=== PATIENT | female | born 1980 | race Caucasian/White ===

== ENCOUNTER 2020-03-18 15:19 | Observation (INO) | payer MEDICAID ==
[~2020-03-18] VITALS: Ht 170.2 cm; Wt 91.6 kg
[2020-03-18] MEDS ORDERED: LACTATED RINGERS 1,000 ML IV SCH (16:00)
[2020-03-18 16:04] LABS: CLARITY URINE CLOUDY (CLEAR); COLOR URINE YELLOW (YELLOW); KETONES URINE NEGATIVE (NEGATIVE); LEUKOCYTE ESTERASE URINE 2+ (NEGATIVE); NITRITE URINE NEGATIVE (NEGATIVE); OCCULT BLOOD URINE NEGATIVE (NEGATIVE); PROTEIN URINE NEGATIVE (NEGATIVE); SPECIFIC GRAVITY URINE 1.016 (1.005-1.030)
[2020-03-18] MEDS: TERBUTALINE SULFATE 1MG/ML VIAL SUBCUT PRN ×2 (16:11→16:42)
== END 2020-03-18 17:30 | disposition home or self-care (01) ==
LOC: 8 EST LDRP 15:19
PROVIDERS: ADMIT Obstetrics & Gynecology; ATTEND Obstetrics & Gynecology
DX: O26.893 Other specified pregnancy related conditions, third trimester (principal); R10.9 Unspecified abdominal pain; Z3A.39 39 weeks gestation of pregnancy
CPT/HCPCS: 59025; 81003; 82731; 96360; 96372; G0378; J3105; 99281

== ENCOUNTER 2020-04-15 11:44 | Observation (INO) | payer MEDICAID ==
[2020-04-15 12:53] LABS: CLARITY URINE CLOUDY (CLEAR); COLOR URINE DARK YELLOW (YELLOW); KETONES URINE TRACE (NEGATIVE); LEUKOCYTE ESTERASE URINE 2+ (NEGATIVE); NITRITE URINE NEGATIVE (NEGATIVE); OCCULT BLOOD URINE NEGATIVE (NEGATIVE); PH URINE 5.5 (4.5-8.0); PROTEIN URINE 1+ (NEGATIVE)
== END 2020-04-15 13:10 | disposition home or self-care (01) ==
LOC: 8 EST LDRP 11:44
PROVIDERS: ADMIT Obstetrics & Gynecology; ATTEND Obstetrics & Gynecology
DX: O26.853 Spotting complicating pregnancy, third trimester (principal); Z3A.35 35 weeks gestation of pregnancy
CPT/HCPCS: 59025; 81003; G0378; 99281

== ENCOUNTER 2020-04-24 23:45 | Observation (INO) | payer MEDICAID ==
[~2020-04-24] VITALS: Ht 170.2 cm; Wt 91.6 kg
[2020-04-25] MEDS ORDERED: FERR325T6 PO (01:02)
[2020-04-25] MEDS ORDERED: PREN1TAB78 PO (01:02)
== END 2020-04-25 03:00 | disposition home or self-care (01) ==
LOC: 8 EST LDRP 23:45
PROVIDERS: ADMIT Obstetrics & Gynecology; ATTEND Obstetrics & Gynecology
DX: O62.9 Abnormality of forces of labor, unspecified (principal); Z3A.36 36 weeks gestation of pregnancy
CPT/HCPCS: 59025; 76815; 76818; G0378; 99281

== ENCOUNTER 2020-04-29 11:27 | Observation (INO) | payer MEDICAID ==
[~2020-04-29] VITALS: Ht 170.2 cm; Wt 92.5 kg
[~2020-04-29 11:27] MED LIST: FERR325T6 PO; PREN1TAB78 PO
[2020-04-29] MEDS ORDERED: LACTATED RINGERS 1,000 ML IV SCH (12:45)
[2020-04-29] MEDS ORDERED: PNV11TAB MT (14:55)
== END 2020-04-29 15:30 | disposition home or self-care (01) ==
LOC: 8 EST LDRP 11:27
PROVIDERS: ADMIT Obstetrics & Gynecology; ATTEND Obstetrics & Gynecology
DX: O46.93 Antepartum hemorrhage, unspecified, third trimester (principal); O62.9 Abnormality of forces of labor, unspecified; Z3A.37 37 weeks gestation of pregnancy
CPT/HCPCS: 59025; 76815; 76818; 96360; G0378; 99281